=== PATIENT | male | born 1990 | race African-American/Black ===

== ENCOUNTER 2017-11-14 17:38 | Inpatient (IN) | payer OTHER ==
[~2017-11-14] VITALS: Ht 175.3 cm; Wt 87.5 kg
[2017-11-14] MEDS ORDERED: SODIUM CHLORIDE 0.9% 1000ML 1,000 ML IV STA ×2 (17:49→18:44)
--- NOTE | 2017-11-14 17:51 | EMERGENCY ROOM VISIT NOTE ---
History Report prepared by Lizz: Yuliya Lowe Under the Supervision of: Dr. Dudley Shaffer D.O. First contact with patient: 17:47 Chief Complaint: HYPERGLYCEMIA Stated Complaint: HIGH BLOOD SUGAR History of Present Illness The patient is a 27 year old male who presents to the Emergency Room with complaints of persistent hyperglycemia that was recognized earlier today. The patient states that he has been having polyuria and polydipsia for the last few weeks. He has a grandfather has diabetes and was concerned he may have had diabetes as well. He went to the [facility] and was sent to the emergency department for an evaluation because his blood sugar was high. The patient states that he has some dizziness as well as some blurred vision. He denies having any chest pain or shortness of breath. He has no headaches or recent falls. He has no weakness in the arms or legs. He was found to have high blood sugar and was sent to the emergency department for further evaluation. Source of History: patient Onset: today Position: other (blood) Quality: other (hypoglycemia) Timing: other (persistent) Associated Symptoms: No headache, No chest pain, No SOB, No weakness Note: Associated symptoms include: some dizziness and blurry vision. Patient denies: recent falls. Review of Systems See HPI for pertinent positives & negatives. A total of 10 systems reviewed and were otherwise negative. Past Medical & Surgical Medical Problems: (1) YURIY (acute kidney injury) (2) No Known Active Medical Problems Family History Diabetes mellitus Social History Smoking Status: Never Smoker Smokeless Tobacco Use: No Alcohol Use: none Drug Use: none Marital Status: single Housing Status: lives with roommate Occupation Status: student Current/Historical Medications No Active Prescriptions or Reported Meds Allergies Coded Allergies: No Known Allergies (Unverified , 11/14/17) Physical Exam Vital Signs Date Time Temp Pulse Resp B/P (MAP) Pulse Ox O2 Delivery O2 Flow Rate FiO2 11/14/17 19:31 82 18 151/81 98 Room Air 11/14/17 19:05 89 11/14/17 19:02 96 Room Air 11/14/17 17:44 36.8 115 20 142/82 98 Room Air Physical Exam GENERAL: Patient is awake alert in no acute distress patient is resting comfortably and showing no signs of anxiety EYES: The conjunctivae are clear. The pupils are round and reactive. EARS, NOSE, MOUTH AND THROAT: The nose is without any evidence of any deformity. Mucous members are dry. NECK: The neck is nontender and supple. RESPIRATORY: Normal respiratory effort is noted there is no evidence of wheezing rhonchi or rales CARDIOVASCULAR: Regular rate and rhythm noted there no murmurs rubs or gallops normal S1 normal S2 GASTROINTESTINAL: The abdomen is soft. Bowel sounds are present in all quadrants. Abdomen is nontender MUSCULOSKELETAL/EXTREMITIES: There is no evidence of gross deformity full range of motion is noted in the hips and shoulders SKIN: There is no obvious evidence of any rash. There are no petechiae, pallor or cyanosis noted. NEUROLOGIC: Patient is awake alert and oriented x3 strength is symmetric patellar reflexes are 2+ bilaterally Medical Decision & Procedures ER Provider Diagnostic Interpretation: Radiology results as stated below per my review and radiologist interpretation: CHEST ONE VIEW PORTABLE CLINICAL HISTORY: EVALUATE ALTERED MENTAL STATUS/WEAKNESS dyspnea COMPARISON STUDY: No previous studies for comparison. FINDINGS: The bones soft tissues and hemidiaphragms are normal. The cardiomediastinal silhouette is normal. The lungs are clear. The pulmonary vasculature is normal. IMPRESSION: Negative chest. The above report was generated using voice recognition software. It may contain grammatical, syntax or spelling errors. Electronically signed by: Uri Simmons M.D. 11/14/2017 6:38 PM Dictated Date/Time: 11/14/2017 6:38 PM Laboratory Results 11/14/17 17:51 Red Blood Count 5.68, Mean Corpuscular Volume 77.3, Mean Corpuscular Hemoglobin 27.8, Mean Corpuscular Hemoglobin Concent 36.0, Mean Platelet Volume 11.5, Neutrophils (%) (Auto) 55.9, Lymphocytes (%) (Auto) 35.6, Monocytes (%) (Auto) 7.3, Eosinophils (%) (Auto) 0.5, Basophils (%) (Auto) 0.5, Neutrophils # (Auto) 3.16, Lymphocytes # (Auto) 2.01, Monocytes # (Auto) 0.41, Eosinophils # (Auto) 0.03, Basophils # (Auto) 0.03 Test 11/14/17 17:51 11/14/17 18:13 11/14/17 18:15 11/14/17 20:55 White Blood Count 5.65 K/uL (4.8-10.8) Red Blood Count 5.68 M/uL (4.7-6.1) Hemoglobin 15.8 g/dL (14.0-18.0) Hematocrit 43.9 % (42-52) Mean Corpuscular Volume 77.3 fL (80-100) Mean Corpuscular Hemoglobin 27.8 pg (25-34) Mean Corpuscular Hemoglobin Concent 36.0 g/dl (32-36) Platelet Count 197 K/uL (130-400) Mean Platelet Volume 11.5 fL (7.4-10.4) Neutrophils (%) (Auto) 55.9 % Lymphocytes (%) (Auto) 35.6 % Monocytes (%) (Auto) 7.3 % Eosinophils (%) (Auto) 0.5 % Basophils (%) (Auto) 0.5 % Neutrophils # (Auto) 3.16 K/uL (1.4-6.5) Lymphocytes # (Auto) 2.01 K/uL (1.2-3.4) Monocytes # (Auto) 0.41 K/uL (0.11-0.59) Eosinophils # (Auto) 0.03 K/uL (0-0.5) Basophils # (Auto) 0.03 K/uL (0-0.2) RDW Standard Deviation 38.0 fL (36.4-46.3) RDW Coefficient of Variation 13.5 % (11.5-14.5) Immature Granulocyte % (Auto) 0.2 % Immature Granulocyte # (Auto) 0.01 K/uL (0.00-0.02) Total Bilirubin 0.6 mg/dl (0.2-1) Alanine Aminotransferase (ALT/SGPT) 21 U/L (12-78) Alkaline Phosphatase 118 U/L (45-117) Total Protein 9.6 gm/dl (6.4-8.2) Albumin 4.5 gm/dl (3.4-5.0) Lipase 205 U/L (73-393) Thyroid Stimulating Hormone (TSH) 2.890 uIu/ml (0.300-4.500) Venous Blood pH 7.31 (7.36-7.41) Venous Blood Partial Pressure CO2 33 mmHg (38.0-50.0) Venous Blood Partial Pressure O2 46 mmHg Venous Blood HCO3 16 mmol/L Venous Blood Oxygen Saturation 78.1 % Venous Blood Base Excess -8.8 mEq/L Urine Color YELLOW Urine Appearance CLEAR (CLEAR) Urine pH 5.0 (4.5-7.5) Urine Specific [place] 1.036 (1.000-1.030) Urine Protein NEG (NEG) Urine Glucose (UA) 3+ (NEG) Urine Ketones 3+ (NEG) Urine Occult Blood NEG (NEG) Urine Nitrite NEG (NEG) Urine Bilirubin NEG (NEG) Urine Urobilinogen NEG (NEG) Urine Leukocyte Esterase NEG (NEG) Magnesium Level 1.7 mg/dl (1.8-2.4) Direct Bilirubin < 0.1 mg/dl (0-0.2) Aspartate Amino Transf (AST/SGOT) 14 U/L (15-37) Laboratory results per my review. Medications Administered Medications (Trade) Dose Ordered Sig/Davy Route Start Time Stop Time Status Last Admin Dose Admin Sodium Chloride 1,000 ml @ 999 mls/hr Q1H1M STAT IV 11/14/17 17:49 11/14/17 18:49 DC 11/14/17 18:16 999 MLS/HR Sodium Chloride 1,000 ml @ 999 mls/hr Q1H1M STAT IV 11/14/17 18:44 11/14/17 19:44 DC 11/14/17 19:01 999 MLS/HR Miscellaneous (Insulin Protocol Moderate Stress Level) 1 ea ONE ONCE N/A 11/14/17 19:15 11/14/17 19:20 DC 11/14/17 22:42 1 EA Insulin Human Regular 2 unit/ Syringe 2 ml @ 1 mls/min TODAY@1930 IV 11/14/17 19:30 11/14/17 19:31 DC 11/14/17 19:28 1 MLS/MIN Insulin Human Regular 250 units/ Sodium Chloride 252.5 ml @ 0 mls/hr Q24H IV 11/14/17 19:30 12/14/17 19:29 11/14/17 19:29 2.2 MLS/HR Miscellaneous (Insulin Protocol Dka Goal Range) 1 ea ONE ONCE N/A 11/14/17 20:30 11/14/17 21:04 DC 11/14/17 22:43 1 EA Miscellaneous (Insulin Protocol Moderate Stress Level) 1 ea ONE ONCE N/A 11/14/17 20:30 11/14/17 21:03 DC 11/14/17 22:43 1 ED Course 173: The patient was evaluated in room A12. A complete history and physical examination were performed. 1749: Ordered Sodium Chloride 1000 ml @ 999 mls/hr IV. 184: Ordered Sodium Chloride 1000 ml @ 999 mls/hr IV. 1902: Ordered Insulin Human Regular 1ea protocol. 1914: Ordered Glucagon 1mg protocol, Dextrose 25-50ml of 50% DW IV, Glucose 4-8 tablets, and Glucose 15-30 grams PO. 1917: I discussed the patient's case with COURTNEY Smith. The patient will be evaluated for further management. 1929: Ordered Insulin Human Regular 250 unites/ Sodium Chloride 252.5 ml @ 0 mls /hr IV and Insulin Human regular 2 unit/ syringe 2ml @ 1 mls/min IV. 2099: Ordered Insulin Aspart. Medical Decision Prior records/ancillary studies reviewed and summarized above. Nursing notes reviewed. Differential diagnosis: Etiologies such as metabolic, infection, hypo/hyperglycemia, electrolyte abnormalities, cardiac sources, intracerebral event, toxicologic, neurologic, as well as others were entertained. The patient is a 27-year-old male who presented to the emergency department for an evaluation of polyuria and polydipsia. The patient was initially seen at [facility] and was found to have elevated blood sugar. He was sent to the emergency department for further evaluation. The patient was treated with IV fluids as well as IV insulin in the emergency department. The patient was reevaluated multiple times. I discussed patient's laboratory results with him. The patient was reevaluated multiple times. I discussed his case with the on-call [facility] hospitalist group. They have agreed to evaluate patient in the emergency department for further management and disposition. Medication Reconcilliation Current Medication List: was personally reviewed by me Blood Pressure Screening Patient's blood pressure: Elevated blood pressure Blood pressure disposition: Referred to PCP (hospitalist) Consults Time Called: 1917 Consulting Physician: COURTNEY Smith Returned Call: 1917 I discussed the patient's case with COURTNEY Smith. The patient will be evaluated for further management. Impression Primary Impression: DKA (diabetic ketoacidoses) Critical Care I have personally spent greater than 45 minutes of critical care time in the direct management of this patient. This includes bedside care, interpretation of diagnostic studies, and testing, discussion with consultants, patient, and family members, and other required patient management activities. This 45 minutes is in excess of all separately billable procedures. Scribe Attestation The scribe's documentation has been prepared under my direction and personally reviewed by me in its entirety. I confirm that the note above accurately reflects all work, treatment, procedures, and medical decision making performed by me. Departure Information Dispostion Being Evaluated By Hospitalist Prescriptions No Active Prescriptions or Reported Meds Referrals No Doctor, Assigned (PCP) Forms HOME CARE DOCUMENTATION FORM, IMPORTANT VISIT INFORMATION, WORK / SCHOOL INSTRUCTIONS Patient Instructions My [facility] [address] Problem Qualifiers Primary Impression: DKA (diabetic ketoacidoses) Diabetes mellitus type: type 1 Diabetes mellitus complication detail: with coma Qualified Codes: E10.11 - Type 1 diabetes mellitus with ketoacidosis with coma
[2017-11-14 18:18] LABS: BASO % 0.5 %; BASO ABS # 0.03 K/uL (0-0.2); EOS % 0.5 %; EOS ABS # 0.03 K/uL (0-0.5); HEMATOCRIT 43.9 % (42-52); HEMOGLOBIN 15.8 g/dL (14.0-18.0); IG# 0.01 K/uL (0.00-0.02); LYMPH % 35.6 %; LYMPH ABS # 2.01 K/uL (1.2-3.4); MEAN CELL VOLUME 77.3 fL (80-100); MEAN CORPUSCULAR HEMOGLOBIN 27.8 pg (25-34); MEAN PLATELET VOLUME 11.5 fL (7.4-10.4); MONO % 7.3 %; MONO ABS # 0.41 K/uL (0.11-0.59); NEUT % 55.9 %; NEUT ABS # 3.16 K/uL (1.4-6.5); PLATELET COUNT 197 K/uL (130-400); RED CELL DISTRIBUTION WIDTH CV 13.5 % (11.5-14.5); WHITE BLOOD COUNT 5.65 K/uL (4.8-10.8)
--- NOTE | 2017-11-14 18:39 | DIAGNOSTIC IMAGING REPORT ---
CHEST ONE VIEW PORTABLE CLINICAL HISTORY: EVALUATE ALTERED MENTAL STATUS/WEAKNESS dyspnea COMPARISON STUDY: No previous studies for comparison. FINDINGS: The bones soft tissues and hemidiaphragms are normal. The cardiomediastinal silhouette is normal. The lungs are clear. The pulmonary vasculature is normal. IMPRESSION: Negative chest. The above report was generated using voice recognition software. It may contain grammatical, syntax or spelling errors. Electronically signed by: Uri Simmons M.D. 11/14/2017 6:38 PM Dictated Date/Time: 11/14/2017 6:38 PM
[2017-11-14 18:54] LABS: ALBUMIN 4.5 gm/dl (3.4-5.0); CALCIUM 9.9 mg/dl (8.5-10.1); CREATININE 1.63 mg/dl (0.60-1.40); TOTAL PROTEIN 9.6 gm/dl (6.4-8.2)
[2017-11-14] MEDS ORDERED: INSULIN IV INFUSION PROTOCOL STA ×2 (19:03→20:27)
[2017-11-14] MEDS ORDERED: DEXTROSE 50% 50 ML SYR IV PRN (19:15)
[2017-11-14] MEDS ORDERED: DKA GOAL RANGE 150-250 mg/dl 1 EA ONE ×2 (19:15→20:30)
[2017-11-14] MEDS ORDERED: GLUCAGON FOR INJ 1 MG VIAL SQ PRN (19:15)
[2017-11-14] MEDS ORDERED: MODERATE STRESS LEVEL ONE ×2 (19:15→20:30)
[2017-11-14] MEDS ORDERED: GLUCOSE 10 TABS/TUBE PO PRN (19:15)
[2017-11-14] MEDS ORDERED: GLUCOSE 40% GEL 15 GM TUBE PO PRN (19:15)
[2017-11-14] MEDS ORDERED: INSULIN REGULAR 250 UNITS in SODIUM CHLORIDE 0.9% 250ML 250 ML IV SCH (19:30)
[2017-11-14] MEDS ORDERED: INSULIN HUMAN REGULAR IV BOLUS 2 UNIT in SYRINGE 0 ML IV SCH (19:30)
--- NOTE | 2017-11-14 20:17 | History and Physical ---
History & Physical Date & Time of Service: Nov 14, 2017 at 20:08 Chief Complaint: High Blood Sugar Primary Care Physician: [facility] History of Present Illness Source: patient 27 yo previously healthy male presenting with 1- 2 week history of polydipsia/ polyuria. He reports generalized weakness, headache, blurry visions which started which started 3-4 weeks ago. Subsequently, patient became progressively more thirsty and noted increasing urinary frequency. Patient is a [employer] Student and went to [facility] today for evaluation. he was told at the time that his blood glucose was around 600 and she should go immediately to Emergency department for evaluation. He report no previous similar symptoms. NO fever,chills, abdominal pain, n/v, diarrhea, chest pain, palpitation. He denies history of Diabetes. He denies recent illness, alcohol use. He has a grandfather who had Diabetes. Past Medical/Surgical History Medical Problems: (1) No Known Active Medical Problems Family History Diabetes mellitus Social History Smoking Status: Never Smoker Smokeless Tobacco Use: No Drug Use: none Marital Status: single Housing status: lives with roommate Occupational Status: student Allergies Coded Allergies: No Known Allergies (Unverified , 11/14/17) Home Medications No Active Prescriptions or Reported Meds Review of Systems Constitutional: + weakness, No fever, No chills ENT: No sore throat Respiratory: No cough, No sputum, No shortness of breath Abdomen: No pain, No nausea, No vomiting, No diarrhea Genitourinary - Male: + urinary frequency, No hematuria, No dysuria, No urinary urgency Neurologic: No weakness, No numbness/tingling Integumentary: No rash, No itch Physical Exam Vital Signs Date Time Temp Pulse Resp B/P (MAP) Pulse Ox O2 Delivery O2 Flow Rate FiO2 11/14/17 19:31 82 18 151/81 98 Room Air 11/14/17 19:02 96 Room Air 11/14/17 17:44 36.8 115 20 142/82 98 Room Air GENERAL: alert, well appearing, well nourished, no distress, non-toxic EYE EXAM: normal conjunctiva, PERRL and EOM's grossly intact OROPHARYNX: no exudate, no erythema, lips, buccal mucosa, and tongue normal and mucous membranes are moist NECK: supple, no nuchal rigidity, no adenopathy, non-tender LUNGS: Clear to auscultation. Normal chest wall mechanics HEART: no murmurs, S1 normal and S2 normal ABDOMEN: abdomen soft, non-tender, normo-active bowel sounds, no masses, no rebound or guarding. SKIN: no rashes and no bruising UPPER EXTREMITIES: upper extremities are grossly normal. LOWER EXTREMITIES: No pitting edema. NEURO EXAM: Normal sensorium, cranial nerves II-XII grossly intact, normal speech Diagnostics Laboratory Results Results Past 24 Hours Test 11/14/17 17:51 11/14/17 18:13 11/14/17 18:15 11/14/17 19:08 Range/Units White Blood Count 5.65 4.8-10.8 K/uL Red Blood Count 5.68 4.7-6.1 M/uL Hemoglobin 15.8 14.0-18.0 g/dL Hematocrit 43.9 42-52 % Mean Corpuscular Volume 77.3 80-100 fL Mean Corpuscular Hemoglobin 27.8 25-34 pg Mean Corpuscular Hemoglobin Concent 36.0 32-36 g/dl Platelet Count 197 130-400 K/uL Mean Platelet Volume 11.5 7.4-10.4 fL Neutrophils (%) (Auto) 55.9 % Lymphocytes (%) (Auto) 35.6 % Monocytes (%) (Auto) 7.3 % Eosinophils (%) (Auto) 0.5 % Basophils (%) (Auto) 0.5 % Neutrophils # (Auto) 3.16 1.4-6.5 K/uL Lymphocytes # (Auto) 2.01 1.2-3.4 K/uL Monocytes # (Auto) 0.41 0.11-0.59 K/uL Eosinophils # (Auto) 0.03 0-0.5 K/uL Basophils # (Auto) 0.03 0-0.2 K/uL RDW Standard Deviation 38.0 36.4-46.3 fL RDW Coefficient of Variation 13.5 11.5-14.5 % Immature Granulocyte % (Auto) 0.2 % Immature Granulocyte # (Auto) 0.01 0.00-0.02 K/uL Sodium Level 126 136-145 mmol/L Potassium Level 3.5-5.1 mmol/L Chloride Level 92 98-107 mmol/L Carbon Dioxide Level 16 21-32 mmol/L Anion Gap 18.0 3-11 mmol/L Blood Urea Nitrogen 14 7-18 mg/dl Creatinine 1.63 0.60-1.40 mg/dl Est Creatinine Clear Calc Drug Dose 75.7 ml/min Estimated GFR () 66.9 Estimated GFR (Non- 57.7 BUN/Creatinine Ratio 8.6 10-20 Random Glucose 579 70-99 mg/dl Calcium Level 9.9 8.5-10.1 mg/dl Magnesium Level 1.8-2.4 mg/dl Total Bilirubin 0.6 0.2-1 mg/dl Direct Bilirubin 0-0.2 mg/dl Aspartate Amino Transf (AST/SGOT) 15-37 U/L Alanine Aminotransferase (ALT/SGPT) 21 12-78 U/L Alkaline Phosphatase 118 45-117 U/L Total Protein 9.6 6.4-8.2 gm/dl Albumin 4.5 3.4-5.0 gm/dl Lipase 205 73-393 U/L Beta-Hydroxybutyric Acid 0.2-2.81 mg/dL Thyroid Stimulating Hormone (TSH) 2.890 0.300-4.500 uIu/ml Venous Blood pH 7.31 7.36-7.41 Venous Blood Partial Pressure CO2 33 38.0-50.0 mmHg Venous Blood Partial Pressure O2 46 mmHg Venous Blood HCO3 16 mmol/L Venous Blood Oxygen Saturation 78.1 % Venous Blood Base Excess -8.8 mEq/L Urine Color YELLOW Urine Appearance CLEAR CLEAR Urine pH 5.0 4.5-7.5 Urine Specific [place] 1.036 1.000-1.030 Urine Protein NEG NEG Urine Glucose (UA) 3+ NEG Urine Ketones 3+ NEG Urine Occult Blood NEG NEG Urine Nitrite NEG NEG Urine Bilirubin NEG NEG Urine Urobilinogen NEG NEG Urine Leukocyte Esterase NEG NEG CXR normal Impression Assessment and Plan 27 yo M with no known history of Diabetes presenting in DKA, YURIY DKA, Polyuria, Polydipsia: likely secondary to new onset Type DM - Admit to Tele - IV NS at 200mls/hr - IV insulin infusion per protocol - q4H labs ( MG, K, BMP) - Q1 Hr BSG checks - Diabetic education Electrolyte abnormalities - Hyponatremia: IV NS as above - F/u K, F/u Mg YURIY: secondary to Dehydration in setting of polyuria -IV nS as above -Follow serial BMP's DVT PPX: Lovenox Code: Full Resuscitation Status VTE Prophylaxis Will order VTE Prophylaxis: Yes Note Total Time: Critical Care 30 - 74 minutes Resident Tracking Resident Involvement: Resident Care Provided Care Provided: Adult Hospital Medicine History Patient seen and examined, chart reviewed, case discussed with Dr. Quezada and I agree with his assessment and plan as documented above. Briefly, patient is a 27yo male with no significant past medical or surgical history presenting with DKA. Patient with 1-2 weeks of polyuria and polydipsia. On exam he is afebrile, hemodynamically stable. NAD, pleasant. MMM. +S1/S2, regular, 2/6 ARETHA at 2nd right ICS, lungs CTA, abdomen benign, extremities warm, well perfused with no edema. Labs and images reviewed. BS 579, HCO3=16, pH= 7.31, anion gap= 18. BUN=14, Cr=1.63. Assessment: 27yo male presenting with DKA, new onset DM. Most likely Type I 1. DKA - admit. IFV, insulin gtt, labs q 4, electrolyte replacement, check islet-cell antibody, anti-GAD65, anti-insulin antibiodies 2. YURIY - IVF as above, continue to monitor Remainder of plan as above
[2017-11-14] MEDS ORDERED: MAGNESIUM HYDROXIDE SUSP 30 ML UDC PO PRN (20:30)
[2017-11-14] MEDS ORDERED: ACETAMINOPHEN 325 MG TAB PO PRN (20:30)
[2017-11-14] MEDS ORDERED: ONDANSETRON INJ 2 MG/ML 2 ML VIAL IV PRN (20:30)
[2017-11-14] MEDS ORDERED: POLYETHYLENE (MIRALAX) 17 GM PACK PO PRN (20:30)
[2017-11-14] MEDS ORDERED: ALUMINUM/MAGNESIUM/SIMETH (MAALOX MAX) 30 ML UDC PO PRN (20:30)
[2017-11-14] MEDS ORDERED: INSULIN ASPART 100 UNITS/ML 3 ML PEN SC SCH (21:00)
[2017-11-14] MEDS ORDERED: SODIUM CHLORIDE 0.9% 1000ML 1,000 ML IV SCH (21:30)
[2017-11-14 21:31] LABS: POTASSIUM 3.5 mmol/L (3.5-5.1)
[2017-11-14] MEDS ORDERED: POTASSIUM CHLORIDE 10 MEQ TABCR PO STA (21:44)
[2017-11-14 21:45] LABS: AST/SGOT 14 U/L (15-37)
[2017-11-14 21:55] LABS: ISTAT CREATININE 0.7 mg/dl (0.6-1.3); ISTAT IONIZED CALCIUM 1.17 mmol/l (1.12-1.32); ISTAT POTASSIUM 3.4 mEq/L (3.3-5.0)
[2017-11-14 22:27] VITALS: BP 148/84; PULSE 93; TEMP 37.1; O2SAT 99; BMI 28.5
[2017-11-14] MEDS: INSULIN ASPART 100 UNITS/ML 3 ML PEN SC SCH (22:43)
[2017-11-14] MEDS ORDERED: MAGNESIUM SULFATE 1GM / D5W 100 ML IV ONE (23:30)
[2017-11-14 23:59] VITALS: BP 161/75; PULSE 60; TEMP 36.8; O2SAT 96
[2017-11-15 00:32] LABS: CALCIUM 8.6 mg/dl (8.5-10.1); CREATININE 1.25 mg/dl (0.60-1.40); PHOSPHORUS 1.8 mg/dl (2.5-4.9); POTASSIUM 3.2 mmol/L (3.5-5.1)
[2017-11-15] MEDS ORDERED: POTASSIUM CHLORIDE 20 MEQ TABCR PO STA ×2 (00:59→11:44)
[2017-11-15] MEDS ORDERED: PENDING D5 1/2NS+20mEq KCL IVF SCH (01:00)
[2017-11-15] MEDS: D5W AND 1/2NSS + 20MEQ KCL 1,000 ML IV SCH ×2 (01:31→06:24)
[2017-11-15 04:00] VITALS: BP 123/68; PULSE 68; TEMP 36.8; O2SAT 98
[2017-11-15 05:23] LABS: CALCIUM 8.4 mg/dl (8.5-10.1); CREATININE 1.07 mg/dl (0.60-1.40); PHOSPHORUS 2.4 mg/dl (2.5-4.9); POTASSIUM 3.8 mmol/L (3.5-5.1)
[2017-11-15 06:47] LABS: INR 1.1 (0.9-1.1)
[2017-11-15 07:02] LABS: HEMOGLOBIN A1C 16.1 % (4.5-5.6)
[2017-11-15 07:59] VITALS: BP 132/84; PULSE 76; TEMP 36.7; O2SAT 100
[2017-11-15] MEDS: ENOXAPARIN 40 MG/0.4 ML SYR SC SCH (08:00)
[2017-11-15] MEDS: INSULIN ASPART 100 UNITS/ML 3 ML PEN SC SCH ×6 (08:00→21:10)
[2017-11-15 08:41] LABS: CALCIUM 8.4 mg/dl (8.5-10.1); CREATININE 1.19 mg/dl (0.60-1.40); PHOSPHORUS 2.1 mg/dl (2.5-4.9); POTASSIUM 3.9 mmol/L (3.5-5.1)
[2017-11-15 08:57] LABS: HEMATOCRIT 41.5 % (42-52); HEMOGLOBIN 14.8 g/dL (14.0-18.0); MEAN CELL VOLUME 76.9 fL (80-100); MEAN CORPUSCULAR HEMOGLOBIN 27.4 pg (25-34); MEAN CORPUSCULAR HGB CONC 35.7 g/dl (32-36); MEAN PLATELET VOLUME 11.8 fL (7.4-10.4); PLATELET COUNT 165 K/uL (130-400); RED CELL DISTRIBUTION WIDTH CV 13.7 % (11.5-14.5); RED CELL DISTRIBUTION WIDTH SD 38.3 fL (36.4-46.3); WHITE BLOOD COUNT 4.46 K/uL (4.8-10.8)
[2017-11-15] MEDS ORDERED: POTASSIUM PHOS 3 MMOL/1 ML INFUSION IV STA (08:57)
[2017-11-15 09:08] LABS: CALCIUM 8.2 mg/dl (8.5-10.1); CREATININE 1.17 mg/dl (0.60-1.40); POTASSIUM 3.3 mmol/L (3.5-5.1)
[2017-11-15] MEDS ORDERED: POTASSIUM PHOSPHATE INJ 15 MMOL in SODIUM CHLORIDE 0.9% 250ML 250 ML IV ONE (09:15)
[2017-11-15] MEDS ORDERED: INSULIN GLARGINE SOLOSTAR 100 UNITS/ML 3 ML PEN SC SCH (10:00)
[2017-11-15 12:08] VITALS: BP 131/69; PULSE 61; TEMP 36.7; O2SAT 98
[2017-11-15 12:27] LABS: CALCIUM 9.2 mg/dl (8.5-10.1); CREATININE 1.01 mg/dl (0.60-1.40); PHOSPHORUS 2.9 mg/dl (2.5-4.9); POTASSIUM 3.9 mmol/L (3.5-5.1)
--- NOTE | 2017-11-15 12:54 | Family Medicine Progress Note ---
Progress Note Date of Service Nov 15, 2017. Subjective Pt evaluation today including: conversation w/ patient, physical exam, chart review, lab review Pain: denies any discomfort this AM PO Intake: tolerating diabetic diet now off IVF Voiding: no voiding problems This AM pt reported improved weakness/dizziness; decreased frequency of urination and improved thirst. Denied any headache, cp, sob, abdominal pain or n /v. No vision changes reported. Constitutional: No fever Eyes: No worsening of vision Respiratory: No shortness of breath Cardiovascular: No chest pain Abdomen: No pain, No nausea, No vomiting Male : No dysuria, No urinary frequency Medications Current Inpatient Medications Medications (Trade) Dose Ordered Sig/Davy Route Start Time Stop Time Status Last Admin Dose Admin Glucose (Glucose 40% Gel) 15-30 GRAMS 15 GRAMS... UD PRN PO 11/14/17 19:15 12/14/17 19:14 Glucose (Glucose Chew Tab) 4-8 Tablets 4 Tabl... UD PRN PO 11/14/17 19:15 12/14/17 19:14 Dextrose (Dextrose 50% 50ML Syringe) 25-50ML OF 50% DW IV FOR... UD PRN IV 11/14/17 19:15 12/14/17 19:14 Glucagon (Glucagon Inj) 1 mg UD PRN SQ 11/14/17 19:15 12/14/17 19:14 Enoxaparin Sodium (Lovenox Inj) 40 mg Q24H SC 11/15/17 08:00 12/15/17 07:59 Acetaminophen (Tylenol Tab) 650 mg Q4H PRN PO 11/14/17 20:30 12/14/17 20:29 Al Hydrox/Mg Hydrox/Simethicone (Maalox Max Susp) 15 ml Q4H PRN PO 11/14/17 20:30 12/14/17 20:29 Magnesium Hydroxide (Milk Of Magnesia Susp) 30 ml Q12H PRN PO 11/14/17 20:30 12/14/17 20:29 Ondansetron HCl (Zofran Inj) 4 mg Q6H PRN IV 11/14/17 20:30 12/14/17 20:29 Polyethylene (Miralax Powder Packet) 17 gm DAILY PRN PO 11/14/17 20:30 12/14/17 20:29 Insulin Glargine (Lantus Solostar Pen) 15 units DAILY VA 11/15/17 10:00 12/15/17 09:59 11/15/17 09:43 15 UNITS Insulin Aspart (novoLOG ASPART) SLIDING SCALE G... ACHS VA 11/15/17 14:05 12/15/17 16:14 Objective Vital Signs Date Time Temp Pulse Resp B/P (MAP) Pulse Ox O2 Delivery O2 Flow Rate FiO2 11/15/17 16:18 36.8 106 18 161/83 (109) 100 Room Air 11/15/17 12:08 36.7 61 16 131/69 (89) 98 11/15/17 12:00 Room Air 11/15/17 08:00 Room Air 11/15/17 07:59 36.7 76 16 132/84 (100) 100 Room Air 11/15/17 04:00 36.8 68 16 123/68 (86) 98 Room Air 11/15/17 04:00 98 Room Air 11/14/17 23:59 36.8 60 16 161/75 (103) 96 11/14/17 23:59 96 Room Air 11/14/17 22:27 37.1 93 18 148/84 99 Room Air 11/14/17 21:57 83 20 128/94 98 11/14/17 19:31 82 18 151/81 98 Room Air 11/14/17 19:05 89 11/14/17 19:02 96 Room Air 11/14/17 17:44 36.8 115 20 142/82 98 Room Air Physical Exam General Appearance: no apparent distress Eyes: normal inspection ENT: + pertinent finding (MMM) Neck: supple Respiratory/Chest: lungs clear, normal breath sounds Cardiovascular: regular rate, rhythm, no murmur Abdomen: normal bowel sounds, non tender, soft Extremities: non-tender, no pedal edema, normal capillary refill Neurologic/Psychiatric: alert, oriented x 3 Skin: warm/dry Laboratory Results 11/15/17 08:14 Test 11/14/17 17:51 11/14/17 18:13 11/14/17 18:15 11/14/17 20:55 Immature Granulocyte % (Auto) 0.2 % White Blood Count 5.65 K/uL (4.8-10.8) Red Blood Count 5.68 M/uL (4.7-6.1) Hemoglobin 15.8 g/dL (14.0-18.0) Hematocrit 43.9 % (42-52) Mean Corpuscular Volume 77.3 fL (80-100) Mean Corpuscular Hemoglobin 27.8 pg (25-34) Mean Corpuscular Hemoglobin Concent 36.0 g/dl (32-36) Platelet Count 197 K/uL (130-400) Mean Platelet Volume 11.5 fL (7.4-10.4) Neutrophils (%) (Auto) 55.9 % Lymphocytes (%) (Auto) 35.6 % Monocytes (%) (Auto) 7.3 % Eosinophils (%) (Auto) 0.5 % Basophils (%) (Auto) 0.5 % Neutrophils # (Auto) 3.16 K/uL (1.4-6.5) Lymphocytes # (Auto) 2.01 K/uL (1.2-3.4) Monocytes # (Auto) 0.41 K/uL (0.11-0.59) Eosinophils # (Auto) 0.03 K/uL (0-0.5) Basophils # (Auto) 0.03 K/uL (0-0.2) Immature Granulocyte # (Auto) 0.01 K/uL (0.00-0.02) Estimated Average Glucose 415 mg/dl Hemoglobin A1c 16.1 % (4.5-5.6) Total Bilirubin 0.6 mg/dl (0.2-1) Alanine Aminotransferase (ALT/SGPT) 21 U/L (12-78) Alkaline Phosphatase 118 U/L (45-117) Total Protein 9.6 gm/dl (6.4-8.2) Albumin 4.5 gm/dl (3.4-5.0) Lipase 205 U/L (73-393) Thyroid Stimulating Hormone (TSH) 2.890 uIu/ml (0.300-4.500) Venous Blood pH 7.31 (7.36-7.41) Venous Blood Partial Pressure CO2 33 mmHg (38.0-50.0) Venous Blood Partial Pressure O2 46 mmHg Venous Blood HCO3 16 mmol/L Venous Blood Oxygen Saturation 78.1 % Venous Blood Base Excess -8.8 mEq/L Urine Color YELLOW Urine Appearance CLEAR (CLEAR) Urine pH 5.0 (4.5-7.5) Urine Specific [place] 1.036 (1.000-1.030) Urine Protein NEG (NEG) Urine Glucose (UA) 3+ (NEG) Urine Ketones 3+ (NEG) Urine Occult Blood NEG (NEG) Urine Nitrite NEG (NEG) Urine Bilirubin NEG (NEG) Urine Urobilinogen NEG (NEG) Urine Leukocyte Esterase NEG (NEG) Direct Bilirubin < 0.1 mg/dl (0-0.2) Aspartate Amino Transf (AST/SGOT) 14 U/L (15-37) Test 11/14/17 21:40 11/14/17 23:31 11/15/17 00:38 11/15/17 04:38 Bedside Hemoglobin 14.6 g/dl (14.0-18.0) Bedside Hematocrit 43 % (42-52) Bedside Sodium 139 mEq/L (135-144) Bedside Potassium 3.4 mEq/L (3.3-5.0) Bedside Chloride 104 mEq/L (101-112) Bedside Total CO2 18 mEq/l (24-31) Bedside Blood Urea Nitrogen 10 mg/dl (7-18) Bedside Creatinine 0.7 mg/dl (0.6-1.3) Bedside Glucose (other) 294 mg/dl (70-99) Bedside Ionized Calcium (Vandana) 1.17 mmol/l (1.12-1.32) Chemistry Specimen Hemolysis Beta-Hydroxybutyric Acid 35.90 mg/dL (0.2-2.81) Prothrombin Time 11.4 SECONDS (9.0-12.0) Prothromb Time International Ratio 1.1 (0.9-1.1) Test 11/15/17 08:14 11/15/17 11:55 11/15/17 12:22 11/15/17 16:03 Red Blood Count 5.40 M/uL (4.7-6.1) Mean Corpuscular Volume 76.9 fL (80-100) Mean Corpuscular Hemoglobin 27.4 pg (25-34) Mean Corpuscular Hemoglobin Concent 35.7 g/dl (32-36) RDW Standard Deviation 38.3 fL (36.4-46.3) RDW Coefficient of Variation 13.7 % (11.5-14.5) Mean Platelet Volume 11.8 fL (7.4-10.4) Est Creatinine Clear Calc Drug Dose 122.5 ml/min Bedside Glucose 215 mg/dl (70-99) Assessment and Plan 27 yo M with no known history of Diabetes presented in mild DKA with YURIY. Initial HCO3 16; PH 7.31; AG 18 and BG 600. Now with improved BG ~ 200 off insulin drip on basal/SS insulin. No anion-gap with normalized bicarb and no concern for electrolyte derangements at this time. On diabetic diet off IVF. Mild DKA with polyuria, polydipsia: likely secondary to new onset Type DM - Received IVF NS bolus and maintenance D5W1/2NS per protocol - IV insulin infusion per protocol - Received q4H labs ( MG, K, BMP) - Received Q1 Hr BSG checks - Received Diabetes education - Now on Lantus 15 units daily and SS insulin goal 140-180 CF: 30 CR: 10 Electrolyte abnormalities improved - Hyponatremia improved - Na 136 - Hypokalemia improved - K 3.9 received IVF with 20meg of KCL and 20meq of KCL tab - Hypophosphatemia improved - Phos 2.9 received 15mmol of potassium phosphate YURIY: secondary to Dehydration in setting of polyuria -IVF received as above -Improved from 1.63 to 1.01 this PM -Will monitor BMP DVT PPX: Lovenox Code: Full Diet: diabetic diet Resident Physician Supervision Note: I interviewed and examined the patient. Discussed with Dr. Crocker and agree with findings and plan as documented in the note. Any exceptions or clarifications are listed here: 27 y/o male with polydipsia/polyuria admitted in DKA looks to be newly diagnosed Type 1 diabetic. Gap is closed this morning; converted to Lantus, insulin gtt discontinued, and sliding scale added. advanced manufacturing associate will meet with patient as well. Documented By: Darrin Mehta Resident Involvement: Resident Care Provided Care Provided: Adult Hospital Medicine
[2017-11-15] MEDS ORDERED: INSULIN ASPART 100 UNITS/ML 3 ML PEN SC SCH (16:15)
[2017-11-15 16:18] VITALS: BP 161/83; PULSE 106; TEMP 36.8; O2SAT 100
[2017-11-15 16:35] LABS: CALCIUM 9.1 mg/dl (8.5-10.1); CREATININE 1.25 mg/dl (0.60-1.40); PHOSPHORUS 2.1 mg/dl (2.5-4.9); POTASSIUM 3.7 mmol/L (3.5-5.1)
[2017-11-15] MEDS ORDERED: SODIUM PHOSPHATE 3 MMOL/1 ML INFUSION IV STA (16:39)
[2017-11-15] MEDS ORDERED: SODIUM PHOSPHATE INJ 15 MMOL in SODIUM CHLORIDE 0.9% 250ML 250 ML IV ONE (17:30)
[2017-11-15 22:16] VITALS: BP 137/80; PULSE 83; TEMP 36.6; O2SAT 98
[2017-11-16 05:04] VITALS: BMI 28.5
[2017-11-16 05:59] LABS: CREATININE 0.98 mg/dl (0.60-1.40); POTASSIUM 3.4 mmol/L (3.5-5.1)
[2017-11-16 07:12] VITALS: BP 137/80; PULSE 76; TEMP 36.9; O2SAT 99
[2017-11-16 08:00] VITALS: O2SAT 99
[2017-11-16] MEDS: INSULIN ASPART 100 UNITS/ML 3 ML PEN SC SCH ×2 (08:28→12:29)
[2017-11-16] MEDS: INSULIN GLARGINE SOLOSTAR 100 UNITS/ML 3 ML PEN SC SCH ×2 (08:29→09:00)
[2017-11-16] MEDS: ENOXAPARIN 40 MG/0.4 ML SYR SC SCH (08:30)
[2017-11-16] MEDS ORDERED: POTASSIUM CHLORIDE 20 MEQ TABCR PO ONE (08:45)
[2017-11-16] MEDS: MAGNESIUM SULFATE 1GM / D5W 100 ML IV SCH ×2 (09:02→10:28)
[2017-11-16] MEDS ORDERED: LANC-393 (12:33)
[2017-11-16] MEDS ORDERED: HMLIS SQ (12:33)
[2017-11-16] MEDS ORDERED: INSU100I23 SQ (12:33)
[2017-11-16] MEDS ORDERED: INSU32MI13 (12:33)
[2017-11-16] MEDS ORDERED: [UNRECOGNIZED DRUG - SUPPLY] (12:33)
--- NOTE | 2017-11-16 12:37 | Discharge Instructions ---
Discharge Instructions Date of Service Nov 16, 2017. Admission Reason for Admission: [place] (Acute Kidney Injury), Discharge Discharge Diagnosis / Problem: diabetes ketoacidosis; diabetes Discharge Goals Goal(s): Decrease discomfort, Diagnostic testing, Therapeutic intervention Activity Recommendations Activity Limitations: resume your previous activity Exercise/Sports Limitations: none Shower/Bathe: no limitations Driving or Machine Use: no limitations . Instructions / Follow-Up Instructions / Follow-Up You were admitted with recent increase in urination. When you came to the emergency room your blood sugar was significantly elevated. We also did a blood test called a hemoglobin A1c which was also high at 16.1 (normally < 5.6) . These findings are consistent with a diagnosis of diabetes. Based on your age, this is most likely type 1 diabetes. In diabetes type 1, your body cannot produce enough insulin. Insulin helps your tissues absorb the sugars from your blood stream for energy/metabolism and without it the sugar levels in your blood build up progressively. The high sugars in the blood pull in water which you end up urinating and can become at risk of significant dehydration if the blood sugars are persistently high. This seems to be the case with you based on your symptoms. There are a lot of changes to be made. First you got education on lifestyle changes that you need to make. This includes, not smoking, and regularly exercising. To monitor your diabetes, you need to monitor your blood sugars up to 5 times a day. Please keep a diary of your numbers, note when the blood sugars were taken (including before or after meals), and bring these numbers to your primary care provider who can use these numbers to help adjust your medications. It is also crucial that you get established with a physician who can see you every 3-4 months because diabetes requires regular monitoring. We have started you on insulin treatment. One that is long-acting and is taken once daily. Another is for before meals. Please take these as they have been prescribed. Please follow these instructions: - Check your blood sugars 3-5 times per day At least one of these should be first thing in the morning At least one other should be 2 hours after dinner. - If you ever sick, please check your blood sugars more frequently because they can go up in these situations. Please take your medications as follows: - Please give yourself 15 units of Basaglar (long acting) insulin every morning after checking your blood glucose before breakfast - Give yourself 5 units of Humalog (short-acting) immediately before each meal Your goals for blood sugars are as follows: - Fasting sugar (first thing in the morning) : < 130 mg/dl - 2 hours after a meal: < 180 mg/dl - Hemoglobin A1c: < 7% (this is a blood test that your doctor will check) Please make sure you see [facility] within 2-3 days. They will help make a referral for you to see an operating manager. If your symptoms fail to improve, acutely worsen, please seek medical attention immediately by either calling your primary care provider or going to your nearest emergency department. Otherwise, please see your primary care provider within 2-3 days to ensure that your symptoms continue to improve. It was a pleasure to be involved in your care and we wish you all the best. Current Hospital Diet Patient's current hospital diet: Diabetes Type 1 Diet Discharge Diet Recommended Diet: Diabetes Type 1 Diet Pending Studies Studies pending at discharge: yes List of pending studies: Anti-EMMA 65 antibody Islet cell Ab Anti-insulin Ab Laboratory Results Hemoglobin A1c Test 11/14/17 17:51 Range/Units Estimated Average Glucose 415 mg/dl Hemoglobin A1c 16.1 H 4.5-5.6 % Medical Emergencies . Who to Call and When: Medical Emergencies: If at any time you feel your situation is an emergency, please call 911 immediately. . Non-Emergent Contact Non-Emergency issues call your: Primary Care Provider Call Non-Emergent contact if: you have a fever, your pain is worsening, you have any medication questions . . "Provider Documentation" section prepared by Kevin Crocker. .
[2017-11-16 13:16] VITALS: BMI 28.5
[2017-11-16 13:25] VITALS: Ht 175.3 cm; Wt 87.5 kg
[2017-11-16 13:47] VITALS: BP 137/80; PULSE 76; TEMP 36.9; O2SAT 99
--- NOTE | 2017-11-16 15:31 | Discharge Summary ---
Discharge Summary Date of Service Nov 16, 2017. Discharge Summary Admission Date: Nov 14, 2017 at 21:13 Discharge Date: Nov 16, 2017 Discharge Disposition: Home Principal Diagnosis: diabetes ketoacidosis Problems/Secondary Diagnoses: Diabetes YURIY Procedures: CHEST ONE VIEW PORTABLE CLINICAL HISTORY: EVALUATE ALTERED MENTAL STATUS/WEAKNESS dyspnea COMPARISON STUDY: No previous studies for comparison. FINDINGS: The bones soft tissues and hemidiaphragms are normal. The cardiomediastinal silhouette is normal. The lungs are clear. The pulmonary vasculature is normal. IMPRESSION: Negative chest. Consultations: Programs Manager Medication Reconciliation New Medications: Insulin Glargine (Basaglar Kwikpen) 100 Unit/Ml Inj 15 UNITS SQ QAM for 30 Days, #6 ML 3 Refills Insulin Human Lispro (Humalog Kwikpen) 100 Units/Ml Inj 5 UNIT SQ AC for 30 Days, #6 ML 3 Refills Insulin Pen Needle (Bd Pen Needle/Amelia/Ultra) 1 Mis Mis EA, #100 3 Refills use one needle with each insulin pen usage Lancets ([employer] Delica Lancets) 1 Mis Mis EA, #100 3 Refills use lancet with glucometer [verio test strips] () EA, #100 3 Refills Please use one strip to check blood glucose 5x/day Discharge Exam Constitutional: No fever Eyes: No worsening of vision Respiratory: No shortness of breath Cardiovascular: No chest pain Abdomen: No pain, No nausea, No vomiting Male : No dysuria, No urinary frequency General Appearance: no apparent distress Eyes: normal inspection ENT: + pertinent finding (MMM) Neck: supple Respiratory/Chest: lungs clear, normal breath sounds Cardiovascular: regular rate, rhythm, no murmur Abdomen: normal bowel sounds, non tender, soft Extremities: non-tender, no pedal edema, normal capillary refill Neurologic/Psychiatric: alert, oriented x 3 Skin: warm/dry Hospital Course 27 yo M with no known history of Diabetes presented in mild DKA with YURIY. Initial HCO3 16; PH 7.31; AG 18 and BG 600. Now with improved BG ~ 200 off insulin drip on basal/SS insulin. No anion-gap with normalized bicarb and no concern for electrolyte derangements at this time. On diabetic diet off IVF. Mild DKA with polyuria, polydipsia: likely secondary to new onset Type DM - Received IVF NS bolus and maintenance D5W1/2NS per protocol - Received IV insulin infusion per protocol initially - Received Lantus 15 units and SS insulin based on goal 140-180 CF: 30 CR: 10 - Discharged with basaglar 15 units QAM and Humalog 5 units with each meal - Received Diabetes education with glucose meter - Scripts provided for strips, lancets, insulin, and pen needles - Recommended follow up with [facility] and endocrine consult Electrolyte abnormalities improved/repleted - Hyponatremia improved - Na 137 - Hypokalemia - K 3.4 received 20meg of KCL PO 11/16 - Hypophosphatemia improved - Phos 2.9 received 15mmol of potassium phosphate on 11/15 - Hypomagnesemia 1.6 - received 2g of Mag sulphate 11/16 YURIY: secondary to Dehydration in setting of polyuria -IVF received as above -Improved from 1.63 to 0.98 this AM prior to discharge DVT PPX: Lovenox Code: Full Resident Physician Supervision Note: I was present with Dr. Crocker during the history and exam. I discussed the case with the resident and agree with the findings and plan as documented in the note. Any exceptions or clarifications are listed here: patient met with environmental educator twice today. Encouraged follow up at [facility] to facilitate referral to outpatient endocrinology. Prescriptions for medications and diabetic supplies provided. Documented By: Darrin Mehta Total Time Spent: Less than 30 minutes This includes examination of the patient, discharge planning, medication reconciliation, and communication with other providers. Discharge Instructions Please refer to the electronic Patient Visit Report (Discharge Instructions) for additional information. Additional Copies To [facility]
== END 2017-11-16 15:58 | disposition home or self-care (01) | DRG 638 ==
LOC: C.EDB 17:41 → C.2T 21:13 → ENRESERV 21:24 → CANRESERV 21:24 → ENRESERV 21:34 → C.MS2W 11-15 16:10
PROVIDERS: ADMIT Internal Medicine; ATTEND Family Medicine
DX: E11.10 Type 2 diabetes mellitus with ketoacidosis without coma (principal); N17.9 Acute kidney failure, unspecified; E87.1 Hypo-osmolality and hyponatremia; E87.6 Hypokalemia; E83.42 Hypomagnesemia; E83.30 Disorder of phosphorus metabolism, unspecified; E86.0 Dehydration; Z83.3 Family history of diabetes mellitus